=== PATIENT | female | born 1985 | race Caucasian/White ===

== ENCOUNTER 2017-02-06 18:48 | Emergency (ER) | payer OTHER ==
[2017-02-06] MEDS ORDERED: NS 0.9% 1000 ML* 2,000 ML IV ONE (22:19)
[2017-02-06] MEDS ORDERED: Ondansetron ODT TAB* 4 MG PO ONE (22:20)
[2017-02-06] MEDS ORDERED: Ketorolac INJ* 30 MG/ML 1 ML VIAL IV PUSH ONE (22:20)
[2017-02-06] MEDS ORDERED: HYDROmorphone* 1 MG/ML 1 ML SYR IV SLOW PU ONE (22:20)
[2017-02-06] MEDS ORDERED: Ondansetron INJ* 2 MG/ML VIAL ONE (22:50)
[2017-02-06] MEDS ORDERED: Ondansetron INJ* 2 MG/ML VIAL IV ONE (23:04)
[2017-02-06 23:28] LABS: Hematocrit 37 % (35-47); Hemoglobin 12.2 g/dl (12.0-16.0); Mean Corpuscular HGB Conc 33 g/dl (31-36); Mean Corpuscular Hemoglobin 30 pg (27-31); Mean Corpuscular Volume 91 fL (80-97); Mean Platelet Volume 10 um3 (7.4-10.4); Red Blood Count 4.04 10^6/ul (4.0-5.4); Red Cell Distribution Width 13 % (10.5-15); White Blood Count 7.2 10^3/ul (3.5-10.8)
[2017-02-06 23:36] LABS: Urine Bacteria Absent (Absent); Urine Bilirubin Negative (Negative); Urine Glucose Negative (Negative); Urine Nitrite Negative (Negative)
[2017-02-06 23:38] LABS: ALT 8 U/L (7-52); AST 15 U/L (13-39); Albumin 4.2 g/dL (3.2-5.2); Alkaline Phosphatase 68 U/L (34-104); Anion Gap 6 mmol/L (2-11); BUN/Creatinine Ratio 14.5 (8-20); Blood Urea Nitrogen 10 mg/dL (6-24); CO2 Carbon Dioxide 26 mmol/L (22-32); Calcium 9.2 mg/dL (8.6-10.3); Chloride 107 mmol/L (101-111); EGFR African American 128.5 (>60); EGFR Non-African American 99.9 (>60); Globulin 2.3 g/dL (2-4); Glucose 81 mg/dL (70-100); Potassium 3.4 mmol/L (3.5-5.0); Sodium 139 mmol/L (133-145); Total Protein 6.5 g/dL (6.4-8.9)
--- NOTE | 2017-02-07 00:26 | ED ---
Abdominal Pain/Female - HPI Summary HPI Summary: 31F presents with left flank pain for a day. has history of kidney stones and this feels the same. She denies any n/v/d/c. she admits to dysuria but denies any hematuria, frequency, urgency. She denies any fever. She has not taken anything for pain. denies any injury. - History of Current Complaint Chief Complaint: EDFlankPain Stated Complaint: LT FLANK PAIN Time Seen by Provider: 02/06/17 21:58 Pain Intensity: 8 Allergies/Adverse Reactions: Allergies Allergy/AdvReac Type Severity Reaction Status Date / Time Iodinated Contrast Media Allergy Severe HIVES, Verified 12/18/13 14:11 [CONTRAST DYE] SWELLING Morphine AdvReac Intermediate NECK/BACK Verified 12/18/13 14:11 PAIN PMH/Surg Hx/FS Hx/Imm Hx Endocrine/Hematology History: Denies: Hx Anticoagulant Therapy Cardiovascular History: Denies: Hx Hypertension - Surgical History Surgery Procedure, Year, and Place: ALFRED- CSECTION X2- HERNIA- DENYS EN Y- - Immunization History Date of Tetanus Vaccine: Unk Date of Influenza Vaccine: None Infectious Disease History: No Infectious Disease History: Denies: Traveled Outside the [place] in Last 30 Days - Family History Known Family History: Positive: Cardiac Disease - Social History Alcohol Use: None Substance Use Type: Reports: None Smoking Status (MU): Former Smoker Review of Systems Negative: Fever Negative: Chest Pain Negative: Shortness Of Breath Negative: Abdominal Pain, Vomiting, Diarrhea, Nausea Positive: dysuria, flank pain All Other Systems Reviewed And Are Negative: Yes Physical Exam Triage Information Reviewed: Yes Vital Signs On Initial Exam: Initial Vitals Temp Pulse Resp BP Pulse Ox 98.4 F 76 20 115/65 100 02/06/17 18:54 02/06/17 18:54 02/06/17 18:54 02/06/17 18:54 02/06/17 18:54 Vital Signs Reviewed: Yes Appearance: Positive: Pain Distress Skin: Positive: Warm, Dry Head/Face: Positive: Normal Head/Face Inspection Eyes: Positive: Normal, EOMI, TORY, Conjunctiva Clear ENT: Positive: Normal ENT inspection, Pharynx normal, TMs normal Respiratory/Lung Sounds: Positive: Clear to Auscultation, Breath Sounds Present Cardiovascular: Positive: Normal, RRR Abdomen Description: Positive: Nontender, Soft, CVA Tenderness (L) Bowel Sounds: Positive: Present - José Coma Scale Coma Scale Total: 15 Diagnostics - Vital Signs Vital Signs Temp Pulse Resp BP Pulse Ox 02/06/17 23:02 18 02/06/17 22:17 97.1 F 68 16 99/56 100 02/06/17 21:00 98.6 F 71 14 96/62 100 02/06/17 18:54 98.4 F 76 20 115/65 100 - Laboratory Lab Results: Lab Results 02/06/17 02/06/17 02/06/17 Range/Units 23:05 23:05 23:05 WBC 7.2 (3.5-10.8) 10^3/ul RBC 4.04 (4.0-5.4) 10^6/ul Hgb 12.2 (12.0-16.0) g/dl Hct 37 (35-47) % MCV 91 (80-97) fL MCH 30 (27-31) pg MCHC 33 (31-36) g/dl RDW 13 (10.5-15) % Plt Count 198 (150-450) 10^3/ul MPV 10 (7.4-10.4) um3 Neut % (Auto) 58.1 (38-83) % Lymph % (Auto) 34.2 (25-47) % Henry % (Auto) 4.6 (1-9) % Eos % (Auto) 2.6 (0-6) % Baso % (Auto) 0.5 (0-2) % Absolute Neuts (auto) 4.2 (1.5-7.7) 10^3/ul Absolute Lymphs (auto) 2.5 (1.0-4.8) 10^3/ul Absolute Monos (auto) 0.3 (0-0.8) 10^3/ul Absolute Eos (auto) 0.2 (0-0.6) 10^3/ul Absolute Basos (auto) 0 (0-0.2) 10^3/ul Absolute Nucleated RBC 0.01 10^3/ul Nucleated RBC % 0.1 Sodium 139 (133-145) mmol/L Potassium 3.4 L (3.5-5.0) mmol/L Chloride 107 (101-111) mmol/L Carbon Dioxide 26 (22-32) mmol/L Anion Gap 6 (2-11) mmol/L BUN 10 (6-24) mg/dL Creatinine 0.69 (0.51-0.95) mg/dL Est GFR ( Amer) 128.5 (>60) Est GFR (Non-Af Amer) 99.9 (>60) BUN/Creatinine Ratio 14.5 (8-20) Glucose 81 (70-100) mg/dL Calcium 9.2 (8.6-10.3) mg/dL Total Bilirubin 0.30 (0.2-1.0) mg/dL AST 15 (13-39) U/L ALT 8 (7-52) U/L Alkaline Phosphatase 68 (34-104) U/L C-React Prot High Sens 0.39 mg/L Total Protein 6.5 (6.4-8.9) g/dL Albumin 4.2 (3.2-5.2) g/dL Globulin 2.3 (2-4) g/dL Albumin/Globulin Ratio 1.8 (1-3) Beta HCG, Quant < 0.60 mIU/mL Urine Color Yellow Urine Appearance Clear Urine pH 5.0 (5-9) Ur Specific [place] 1.023 (1.010-1.030) Urine Protein Negative (Negative) Urine Ketones Negative (Negative) Urine Blood 3+ H (Negative) Urine Nitrate Negative (Negative) Urine Bilirubin Negative (Negative) Urine Urobilinogen Negative (Negative) Ur Leukocyte Esterase Negative (Negative) Urine WBC (Auto) 1+(6-10/hpf) H (Absent) Urine RBC (Auto) 3+(>10/hpf) H (Absent) Ur Squamous Epith Cells Present H (Absent) Calcium Oxalate Crystal Present H (Absent) Urine Bacteria Absent (Absent) Urine Glucose Negative (Negative) Result Diagrams: 02/06/17 23:05 02/06/17 23:05 Lab Statement: Any lab studies that have been ordered have been reviewed, and results considered in the medical decision making process. - CT abd CT Interpretation: Positive (See Comments) - 5mm stone mid left kidney has slightly enlarge. no uteroterlithasis. CT Interpretation Completed By: Radiologist Abdominal Pain Fem Course/Dx - Course Course Of Treatment: 31F presents with left flank pain for a day. has history of kidney stones and this feels the same. She denies any n/v/d/c. she admits to dysuria but denies any hematuria, frequency, urgency. She denies any fever. She has not taken anything for pain. denies any injury. on exam has tenderness left flank. CT abd shows stone in kidney. labs normal. no uti. patient understands and agrees with plan. - Diagnoses Differential Diagnosis: Positive: Renal Colic, Urinary Tract Infection, Other - pyelo Provider Diagnoses: Flank pain, Injury of left hand Discharge - Discharge Plan Condition: Good Disposition: HOME Patient Education Materials: Flank Pain (ED) Forms: *Work Release Referrals: Kya Us MD [Primary Care Provider] - Additional Instructions: Take Tylenol or ibuprofen every 6 hours as needed for pain Apply ice, rest, elevate Follow up with primary care physician within 5 days Return to ED if develop any new or worsening symptoms
[2017-02-07 01:00] VITALS: BP 104/52
--- NOTE | 2017-02-07 07:24 | RAD ---
INDICATION: Left hand injury. TECHNIQUE: 4 views of the left hand were obtained. FINDINGS: There is soft tissue swelling noted dorsal to the metacarpal bones. The bones are normal alignment. No fracture is seen. Joint spaces appear maintained. IMPRESSION: SOFT TISSUE SWELLING, NO FRACTURE IS SEEN, IF THE PATIENT'S SYMPTOMS PERSIST RECOMMEND FOLLOW-UP IMAGING.
--- NOTE | 2017-02-07 08:05 | RAD ---
INDICATION: Left flank abdominal pain. COMPARISON: Comparison is made with a prior CT of the abdomen and pelvis from November 24, 2014. TECHNIQUE: A CT scan of the abdomen and pelvis was performed without intravenous or oral contrast. Contiguous axial sections were obtained from the lung bases through the symphysis pubis. Images were reconstructed in the coronal and sagittal planes. FINDINGS: The lung bases are clear. No pleural effusion is present. The liver and spleen are normal in size without significant focal abnormality on this noncontrast study. The patient is status post cholecystectomy. No pancreatic ductal distention or calcifications are appreciated. The adrenal glands appear to be within normal limits. There is a 5 mm calculus in the mid to upper portion of the left kidney which has increased slightly in size from the prior study. On the prior exam there was an additional small punctate left renal calculus which is no longer visualized. No hydronephrosis is seen. There are several calcifications present within the pelvis limiting the study although no definite ureteral or bladder calculi are seen. The abdominal aorta is normal in caliber. No significant enlarged retroperitoneal lymph nodes are seen. The patient appears to be status post Leian-en-Y gastric bypass surgery. The stomach, small and large bowel appear nondistended. The appendix is not well visualized. There is no evidence for diverticulitis or colitis. The uterus is retroverted and normal in size. There is a relatively prominent amount of air within the vagina. Recommend clinical correlation. No free intraperitoneal air or fluid is seen. No significant focal osseous abnormality is seen. IMPRESSION: 1. NONOBSTRUCTING LEFT RENAL CALCULUS. 2. AIR WITHIN THE VAGINA. RECOMMEND CLINICAL CORRELATION. 3. STATUS POST CHOLECYSTECTOMY AND GASTRIC BYPASS SURGERY.
== END 2017-02-07 00:57 | disposition home or self-care (01) ==
LOC: ED 18:48
DX: R10.84 Generalized abdominal pain (principal); S69.92XA Unspecified injury of left wrist, hand and finger(s), initial encounter; X58.XXXA Exposure to other specified factors, initial encounter; Y93.9 Activity, unspecified; Y92.89 Other specified places as the place of occurrence of the external cause
CPT/HCPCS: 36415; 74176; 80053; 81003; 81015; 84702; 85025; 86141; 96374; 96375; 99283; J1170; J1885; J2405

== ENCOUNTER 2018-03-31 09:18 | Emergency (ER) | payer BC ==
[2018-03-31] MEDS ORDERED: NS 0.9% 1000 ML* 1,000 ML IV ONE (09:38)
[2018-03-31] MEDS ORDERED: Ketorolac INJ* 30 MG/ML 1 ML VIAL IV PUSH ONE (09:38)
[2018-03-31 09:55] LABS: Hematocrit 39 % (35-47); Mean Corpuscular HGB Conc 33 g/dl (31-36); Mean Corpuscular Hemoglobin 29 pg (27-31); Mean Corpuscular Volume 88 fL (80-97); Mean Platelet Volume 8.4 um3 (7.4-10.4); Platelet Count 261 10^3/ul (150-450); Red Blood Count 4.41 10^6/ul (4.00-5.40); Red Cell Distribution Width 14 % (10.5-15); White Blood Count 9.4 10^3/ul (3.5-10.8)
[2018-03-31] MEDS ORDERED: cefTRIAXone(*) 1 GM in NS 0.9% 50 ML* 50 ML IVPB ONE (10:06)
[2018-03-31] MEDS ORDERED: Ondansetron INJ* 2 MG/ML VIAL IV ONE (10:06)
--- NOTE | 2018-03-31 11:32 | RAD ---
Indication: Flank pain. CT of the abdomen and pelvis was performed without oral or IV contrast administration. Coronal and sagittal reconstructed images were obtained. Comparison is made with previous exam dated February 06, 2017. The lung bases demonstrate tiny pleural-based nodule measuring 3 mm in the right middle lobe area. No alveolar consolidation is noted. No parenchymal nodules are noted. Right breast implant is noted. Heart demonstrates no pericardial effusion. Liver is normal in size. No focal lesions or intrahepatic duct dilatation is noted. Pancreas demonstrates no mass or pancreatic duct dilatation. Spleen is normal in size. The patient status post gastric bypass surgery. No adrenal lesions are noted. The kidneys demonstrate no hydronephrosis. Calcifications are noted in the left kidney without evidence of obstruction. No evidence of obstructive uropathy is noted. No retroperitoneal lymphadenopathy. CT of the pelvis demonstrates urinary bladder place. A Ardon catheter. Patient is status post hysterectomy. No evidence of fluid is noted in the cul-de-sac. No hernias are noted. No abnormally dilated loops of bowel are noted. The visualized bony structures are grossly unremarkable. IMPRESSION: Postoperative changes in the rectovesical space presumably from recent hysterectomy. No definite obstructive uropathy is noted. Bony structures are grossly unremarkable. Ardon catheter is in place. Patient is status post gastric bypass surgery.
[2018-03-31 11:34] LABS: Urine Appearance Cloudy; Urine Blood 2+ (Negative); Urine Color Yellow; Urine Ketones Negative (Negative); Urine Protein Negative (Negative); Urine Red Blood Cell 2+(6-10/hpf) (Absent); Urine Specific Gravity 1.003 (1.010-1.030); Urine Urobilinogen Negative (Negative); Urine White Blood Cell 3+(>20/hpf) (Absent)
[2018-03-31 13:59] VITALS: BP 96/55
--- NOTE | 2018-03-31 15:52 | ED ---
Abdominal Pain/Female - HPI Summary HPI Summary: Patient is a 82-year-old female who presents emergency department for right flank pain status post hysterectomy with bladder laceration 10 days ago. Patient had hysterectomy secondary to menorrhagia by Dr. Sims at [facility]. Complications of bladder laceration and repair. Pt. currently has an indwelling Ardon. Patient states she has a history of recurrent UTIs and pyelonephritis. She was placed prophylactically on Macrobid after Ardon was placed. Patient states she started just fell ill last week with intermittent fevers and bladder pain. She was started on Keflex yesterday for potential UTI. She also notes intermittent nausea and vomiting for which she has Zofran at home. Symptoms are moderate in severity. No current modifying factors. - History of Current Complaint Chief Complaint: EDUrogenitalProblems Stated Complaint: CATHETER INFECTION Time Seen by Provider: 03/31/18 09:33 Hx Obtained From: Patient Pain Intensity: 4 Pain Scale Used: 0-10 Numeric Allergies/Adverse Reactions: Allergies Allergy/AdvReac Type Severity Reaction Status Date / Time hydromorphone [From Dilaudid] Allergy Hives Verified 03/31/18 09:23 Iodinated Contrast- Oral and Allergy Hives/Diff. Verified 03/31/18 09:23 IV Dye Breathing/I tching morphine Allergy Pain Verified 03/31/18 09:23 PMH/Surg Hx/FS Hx/Imm Hx Previously Healthy: Yes Endocrine/Hematology History: Denies: Hx Anticoagulant Therapy Cardiovascular History: Denies: Hx Hypertension - Surgical History Surgery Procedure, Year, and Place: ALFRED- CSECTION X2- HERNIA- DENYS EN Y- HYSTERECTOMY - Immunization History Date of Tetanus Vaccine: Unk Date of Influenza Vaccine: None Infectious Disease History: No Infectious Disease History: Reports: Traveled Outside the [place] in Last 30 Days - [place] - Family History Known Family History: Positive: Cardiac Disease - Social History Occupation: Unemployed Lives: With Family Alcohol Use: None Substance Use Type: Reports: None Smoking Status (MU): Former Smoker Review of Systems Positive: Fever, Chills Respiratory: Negative Positive: Abdominal Pain, Vomiting, Nausea Positive: dysuria, flank pain Neurological: Negative All Other Systems Reviewed And Are Negative: Yes Physical Exam Triage Information Reviewed: Yes Vital Signs On Initial Exam: Initial Vitals Temp Pulse Resp BP Pulse Ox 98.3 F 95 16 126/69 94 03/31/18 09:24 03/31/18 09:24 03/31/18 09:24 03/31/18 09:24 03/31/18 09:24 Vital Signs Reviewed: Yes Appearance: Positive: Well-Appearing - Patient sitting up in bed in no acute distress. Tearful. Skin: Positive: Warm, Dry Head/Face: Positive: Normal Head/Face Inspection Eyes: Positive: Normal, EOMI Neck: Positive: Supple Respiratory/Lung Sounds: Positive: Clear to Auscultation, Breath Sounds Present Cardiovascular: Positive: Normal, RRR Abdomen Description: Positive: Other: - No rebound tenderness or guarding. Significant right CVA tenderness. Diffuse abdominal tenderness. Neurological: Positive: Normal, CN Intact II-III Psychiatric: Positive: Affect/Mood Appropriate Diagnostics - Vital Signs Vital Signs Temp Pulse Resp BP Pulse Ox 03/31/18 14:08 98.1 F 77 14 96/55 98 03/31/18 13:28 69 96/55 98 03/31/18 13:00 66 97 03/31/18 12:58 67 103/62 99 03/31/18 12:28 68 101/61 95 03/31/18 12:00 67 97 03/31/18 11:58 66 104/58 98 03/31/18 11:28 66 102/67 96 03/31/18 11:00 73 95 03/31/18 10:59 76 89/66 95 03/31/18 10:58 71 95 03/31/18 09:24 98.3 F 95 16 126/69 94 - Laboratory Lab Results: Lab Results 03/31/18 03/31/18 03/31/18 Range/Units 09:49 09:49 11:00 WBC 9.4 (3.5-10.8) 10^3/ul RBC 4.41 (4.00-5.40) 10^6/ul Hgb 13.0 (12.0-16.0) g/dl Hct 39 (35-47) % MCV 88 (80-97) fL MCH 29 (27-31) pg MCHC 33 (31-36) g/dl RDW 14 (10.5-15) % Plt Count 261 (150-450) 10^3/ul MPV 8.4 (7.4-10.4) um3 Sodium 137 (135-145) mmol/L Potassium 4.0 (3.5-5.0) mmol/L Chloride 102 (101-111) mmol/L Carbon Dioxide 29 (22-32) mmol/L Anion Gap 6 (2-11) mmol/L BUN 10 (6-24) mg/dL Creatinine 0.71 (0.51-0.95) mg/dL Est GFR ( Amer) 116.2 (>60) Est GFR (Non-Af Amer) 96.0 (>60) BUN/Creatinine Ratio 14.1 (8-20) Glucose 107 H (70-100) mg/dL Calcium 9.7 (8.6-10.3) mg/dL Total Bilirubin 0.40 (0.2-1.0) mg/dL AST 57 H (13-39) U/L ALT 121 H (7-52) U/L Alkaline Phosphatase 267 H (34-104) U/L Total Protein 7.3 (6.4-8.9) g/dL Albumin 4.1 (3.2-5.2) g/dL Globulin 3.2 (2-4) g/dL Albumin/Globulin Ratio 1.3 (1-3) Urine Color Yellow Urine Appearance Cloudy Urine pH 7.0 (5-9) Ur Specific [place] 1.003 L (1.010-1.030) Urine Protein Negative (Negative) Urine Ketones Negative (Negative) Urine Blood 2+ A (Negative) Urine Nitrate Negative (Negative) Urine Bilirubin Negative (Negative) Urine Urobilinogen Negative (Negative) Ur Leukocyte Esterase 3+ A (Negative) Urine WBC (Auto) 3+(>20/hpf) A (Absent) Urine RBC (Auto) 2+(6-10/hpf) A (Absent) Ur Squamous Epith Cells Present A (Absent) Urine Bacteria 1+ A (Absent) Urine Glucose Negative (Negative) Result Diagrams: 03/31/18 09:49 03/31/18 09:49 Lab Statement: Any lab studies that have been ordered have been reviewed, and results considered in the medical decision making process. Abdominal Pain Fem Course/Dx - Course Course Of Treatment: Patient is roughly pain, subjective fevers, nausea and vomiting status post hysterectomy and bladder laceration. In the ER she is afebrile stable vital signs. Will proactively give patient a dose of Rocephin started IV fluids, Zofran and Toradol given. At work and urine ordered. They did consult our urologist, Dr. Simon, who recommends abdominal CT for evaluation of hydronephrosis, ureter injury. Patient states she did not see urology [place]. He did speak with on-call water resources project manager at [place], Dr. Norton, he was able to find more information on patient's course and treatment. Postoperative notes were obtained [place] as well. CT scan shows postoperative changes without acute findings, reading per radiology. Blood work is unremarkable. Urinalysis shows bacteria and leukocytes. Dr. Simon recommends switching patient's antibiotic to Cipro. He does not see a reason for patient to follow up with urology. Results discussed with patient. She has an appointment with gynecology for next week. Advised to return to the ER for increased pain, fever, vomiting or if concerned. She understands and agrees with plan. - Diagnoses Provider Diagnoses: UTI (urinary tract infection), Flank pain Discharge - Sign-Out/Discharge Documenting (check all that apply): Patient Departure - Discharge Plan Condition: Good Disposition: HOME Prescriptions: Ciprofloxacin TAB* [Cipro 500 MG TAB*] 500 mg PO BID #14 tab Patient Education Materials: Ardon Catheter Placement and Care (ED) Referrals: Richa Victor MD [Primary Care Provider] - Additional Instructions: Call your RIDE ASSEMBLY SUPERVISOR on Monday for a follow up appointment Take Cipro instead of keflex Motrin for pain as directed Return to ER if symptoms change or worsen - Billing Disposition and Condition Condition: GOOD Disposition: Home
--- NOTE | 2018-04-02 06:03 | PN ---
Progress Note - Progress Note Date of Service: 04/02/18 Note: The patient's urine culture pseudomonas greater than 100,000. Place place on Cipro. Will wait for final culture.
--- NOTE | 2018-04-03 05:34 | PN ---
Progress Note - Progress Note Date of Service: 04/03/18 Note: patient placed on cipro which final culture is sensitive to.
== END 2018-03-31 14:08 | disposition home or self-care (01) ==
LOC: ED 09:18
DX: N39.0 Urinary tract infection, site not specified (principal); B96.5 Pseudomonas (aeruginosa) (mallei) (pseudomallei) as the cause of diseases classified elsewhere; Z87.440 Personal history of urinary (tract) infections; R10.817 Generalized abdominal tenderness; S37.23XD Laceration of bladder, subsequent encounter; X58.XXXD Exposure to other specified factors, subsequent encounter; Z90.710 Acquired absence of both cervix and uterus; R11.2 Nausea with vomiting, unspecified; Z88.5 Allergy status to narcotic agent; Z91.041 Radiographic dye allergy status; Z87.891 Personal history of nicotine dependence
CPT/HCPCS: 36415; 74176; 80053; 81003; 81015; 85027; 87077; 87086; 87186; 96374; 96375; 99284; J0696; J1885; J2405

== ENCOUNTER 2019-05-02 20:20 | Emergency (ER) | payer BC ==
--- OUTSIDE RECORDS SUMMARY | 2019-05-02 20:42 | XMS REPORT | Continuity of Care Document ---
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 [phone] Problems Description No Information Available Social History Type Date Description Comments Sex Unknown ETOH Use Denies alcohol use Tobacco Use Start: Unknown End: Patient is a former smoker Unknown Recreational Drug Use Denies Drug Use Smoking Status Reviewed: 03/21/19 Patient is a former smoker Exercise Type/Frequency Exercises regularly Allergies, Adverse Reactions, Alerts Active Allergies Reaction Severity Comments Date Iodine 02/05/2015 Morphine 02/05/2015 Dilaudid 02/05/2015 Medications Active Medications SIG Qnty Indications Ordering Date Provider Midodrine HCL 1 by mouth twice 90tabs Chantal Levin, 03/21/2019 2.5mg daily ( 7 am and CENTRAL OFFICE SUPERVISOR Tablets 2 pm ) Ondansetron HCL take 1 by mouth Unknown 8mg q6h prn Tablets Multivitamins 1 by mouth twice Unknown Capsules every day Vitamin B12 injection 1once Unknown 1000mcg every 2 weeks. Ibuprofen 200 400-600mg every 6 Unknown 200mg hours as needed Tablets for pain. Calcium 1200 1 by mouth every Unknown day ( calcium is [id number] 1500 mg) Chewtabs Biotin/Collagen 1 po qd Unknown Zyrtec Allergy take one tablet Unknown 10mg by mouth in the Capsules evening Immunizations Description No Information Available Vital Signs Date Vital Result Comment 03/21/2019 2:02pm Height 60 inches 5'0" Weight 158.38 lb Heart Rate 72 /min BP Systolic Sitting 102 mmHg Ra< reg BP Diastolic Sitting 68 mmHg Ra< reg BP Systolic Standing 108 mmHg LA, reg BP Diastolic Standing 68 mmHg LA, reg BMI (Body Mass Index) 30.9 kg/m2 Ejection Fraction 50%-55% 05/03/18 12/06/2018 1:53pm Height 60 inches 5'0" Weight 161.50 lb Clothes/shoes Heart Rate 80 /min Radial BP Systolic Sitting 118 mmHg Rue reg cuff BP Diastolic Sitting 70 mmHg Rue reg cuff BP Systolic Standing 108 mmHg RUe reg cuff BP Diastolic Standing 70 mmHg RUe reg cuff BMI (Body Mass Index) 31.5 kg/m2 Ejection Fraction 50-55% Echo 05/03/2018 Results Description No Information Available Procedures Date Code Description Status 09/28/2018 06195 Holter Monitor Review (24 hr)dr al & interp only Completed 09/26/2018 01402 ECG Monitor/Recording W/Visual Superimposition Scanning Completed Medical Devices Description No Information Available Encounters Type Date Location Provider Dx Diagnosis Office Visit 12/06/2018 [facility] Chantal Levin, I95.1 Orthostatic 2:30p CENTRAL OFFICE SUPERVISOR hypotension D64.9 Anemia, unspecified I36.1 Nonrheumatic tricuspid (valve) insufficiency Office Visit 10/09/2018 3:00p [facility] Chantal Levin, I95.1 Orthostatic Of [employer] CENTRAL OFFICE SUPERVISOR hypotension I36.1 Nonrheumatic tricuspid (valve) insufficiency D64.9 Anemia, unspecified Assessments Date Code Description Provider 03/21/2019 I95.1 Orthostatic hypotension Chantal Thjonnie, CENTRAL OFFICE SUPERVISOR 03/21/2019 R00.2 Palpitations Chantal Thjonnie, CENTRAL OFFICE SUPERVISOR 03/21/2019 I36.1 Nonrheumatic tricuspid (valve) Chantal Thuman, CENTRAL OFFICE SUPERVISOR insufficiency 03/21/2019 R53.83 Other fatigue Chantal Thuman, CENTRAL OFFICE SUPERVISOR 12/06/2018 I95.1 Orthostatic hypotension Chantal Thuman, CENTRAL OFFICE SUPERVISOR 12/06/2018 D64.9 Anemia, unspecified Chantal Thuman, CENTRAL OFFICE SUPERVISOR 12/06/2018 I36.1 Nonrheumatic tricuspid (valve) Chantal Thuman, CENTRAL OFFICE SUPERVISOR insufficiency 10/09/2018 I95.1 Orthostatic hypotension Chantal Thuman, CENTRAL OFFICE SUPERVISOR 10/09/2018 I36.1 Nonrheumatic tricuspid (valve) Chantal Thuman, CENTRAL OFFICE SUPERVISOR insufficiency 10/09/2018 D64.9 Anemia, unspecified Chantal Levin NP 09/28/2018 R55 Syncope and collapse Judy Arguelles M.D. 09/26/2018 R55 Syncope and collapse Nurse Visit IC Plan of Treatment Future Appointment(s):04/11/2019 1:00 pm - Chantal Levin NP at [facility]03/21/2019 - Chantal Levin NPI95.1 Orthostatic hypotensionFollow up:f /u with me in 3-4 weeks.Recommendations:Increase Midodrine to 2.5mg by mouth three times a day. Make sure you allow 3-4 hours between doses and do not take last dose 4 hour prior to bed. get non fasting labs.R00.2 NvehryfotysqJ54.1 Nonrheumatic tricuspid (valve) aktgajjuaqhumV45.83 Other fatigueReferral:Brigette Ash MD, Family Medicine Functional Status Description No Information Available Mental Status Description No Information Available Referrals Refer to Dr Reason for Referral Status Appt Date Brigette Ash MD Created [address] [place] [address] [phone]
--- OUTSIDE RECORDS SUMMARY | 2019-05-02 20:42 | XMS REPORT | Continuity of Care Document ---
:1985 External Reference #:[id number] Author Name Susan Levi NP Address [address] [place] [address] Care Team Providers Name Role Phone Brigette Ash M.D. 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 Problems Description No Information Available Social History Type Date Description Comments Sex Unknown Tobacco Use Start: Unknown Nonsmoker Tobacco Use Start: Unknown End: Former Cigarette Smoker 5-6 years, 1/4 ppd Unknown ETOH Use Denies alcohol use Exercise Exercises regularly daily cardio and HIT Type/Frequency training Allergies, Adverse Reactions, Alerts Active Allergies Reaction Severity Comments Date Morphine 03/27/2019 Medications Active Medications SIG Qnty Indications Ordering Provider Date Physical Therapy please diagnose M25.552 Susan Langston 03/27/2019 and treat for STEPHANIE Levi left hip pain, I suspect it band pain Midodrine HCL tid Unknown 2.5mg Tablets Zofran prn Unknown 8mg Tablets Ciprofloxacin HCL as needed Unknown 250mg Tablets Multi Vitamin once daily otc Unknown Tablets Calcium Unknown 1500mg Tablets Biotin 1200 daily Unknown 1000mcg Tablets Zyrtec Allergy 1 by mouth every Unknown 10mg Tablets day, please fill with generic Cyanocobalamin Bi-weekly Unknown 1000mcg/ML Solution Immunizations Description No Information Available Vital Signs Date Vital Result Comment 03/27/2019 10:45am BP Systolic 112 mmHg BP Diastolic 60 mmHg Heart Rate 66 /min Body Temperature 98.1 F Respiratory Rate 16 /min Height 61 inches 5'1" Weight 155.00 lb BMI (Body Mass Index) 29.3 kg/m2 Results Description No Information Available Procedures Description No Information Available Medical Devices Description No Information Available Encounters Description No Information Available Assessments Date Code Description Provider 03/27/2019 I95.1 Orthostatic hypotension Susan Ivis Levi, STEPHANIE 03/27/2019 D50.8 Other iron deficiency anemias Susan Levi, STEPHANIE 03/27/2019 D51.9 Vitamin B12 deficiency anemia, unspecified Susan Levi, PRIME BROKER 03/27/2019 J30.2 Other seasonal allergic rhinitis Susan Levi, STEPHANIE 03/27/2019 M25.552 Pain in left hip Susan Levi NP Plan of Treatment 03/27/2019 - Susan Levi, NPI95.1 Orthostatic hypotensionComments: Continue to follow-up with cardiologyWe will get labs and determine next steps.D50.8 Other iron deficiency anemiasComments:Continue to follow-up with pczstoghdxS32.9 Vitamin B12 deficiency anemia, qhxdaxwigmdM88.2 Other seasonal allergic psqrwvwqT85.552 Pain in left hipNew Medication:Physical Therapy - please diagnose and treat for left hip pain, I suspect it band painComments: start physical therapy and come back in 3 months for a recheck. Come back sooner if symptoms are worsening or evolving.AllComments:1. Patient has been queried about patient's goals/preferences and functional/lifestyle goals at relevant visits. If relevant, describe: Has been discussed, noted above2. Treatment goals as explainedto the patient: see above3. Are there barriers to meeting treatment goals? Yes If Yes, please describe: Barriers include possible insurance limits, disease process, and difficulty with lifestyle changes4. Self-Management goals as described to the patient: Yes, see above As always, we strongly encourage a healthy diet and making physical activity a part of your every day life. If you have questions about how or where to start, please contact the office. Functional Status Description No Information Available Mental Status Description No Information Available Referrals Description No Information Available
--- OUTSIDE RECORDS SUMMARY | 2019-05-02 20:42 | XMS REPORT | Continuity of Care Document ---
:1985 External Reference #:[id number] Author Name Chantal Levin NP (transmitted by agent of provider Lyubov Castillo) Address [facility] [place] [address] Problems Description No Information Available Social History Type Date Description Comments Sex Unknown ETOH Use Denies alcohol use Tobacco Use Start: Unknown End: Patient is a former smoker Unknown Recreational Drug Use Denies Drug Use Smoking Status Reviewed: 04/11/19 Patient is a former smoker Exercise Type/Frequency Exercises regularly Allergies, Adverse Reactions, Alerts Active Allergies Reaction Severity Comments Date Iodine 02/05/2015 Morphine 02/05/2015 Dilaudid 02/05/2015 Medications Active Medications SIG Qnty Indications Ordering Date Provider Midodrine HCL 1 by mouth two 90tabs Chantal Levin, 03/21/2019 2.5mg times daily FAITH DOCTOR Tablets Ondansetron HCL take 1 by mouth Unknown 8mg q6h prn Tablets Multivitamins 1 by mouth once Unknown Capsules every day Vitamin B12 injection 1once Unknown 1000mcg every 2 weeks. Calcium 1200 1 by mouth every Unknown day ( calcium is [id number]-Llxs 1500 mg) Chewtabs Biotin/Collagen 1 po qd Unknown Zyrtec Allergy take one tablet Unknown 10mg by mouth in the Capsules evening Immunizations Description No Information Available Vital Signs Date Vital Result Comment 04/11/2019 12:54pm Height 60 inches 5'0" Weight 159.38 lb with shoes/jacket Heart Rate 72 /min radial,regular BP Systolic Sitting 108 mmHg LA, reg cuff BP Diastolic Sitting 70 mmHg LA, reg cuff BP Systolic Standing 108 mmHg LA, reg cuff BP Diastolic Standing 70 mmHg LA, reg cuff BMI (Body Mass Index) 31.1 kg/m2 Ejection Fraction 50%-55% echo 05/03/18 03/21/2019 2:02pm Height 60 inches 5'0" Weight 158.38 lb Heart Rate 72 /min BP Systolic Sitting 102 mmHg Ra< reg BP Diastolic Sitting 68 mmHg Ra< reg BP Systolic Standing 108 mmHg LA, reg BP Diastolic Standing 68 mmHg LA, reg BMI (Body Mass Index) 30.9 kg/m2 Ejection Fraction 50%-55% 05/03/18 Results Test Date Facility Test Result H/L Range Note Basic Metabolic 04/09/2019 [facility] Sodium 139 mmol/L Normal 135-[address] [place] [address] [phone] Potassium 4.4 mmol/L Normal 3.5-5.0 Chloride 107 mmol/L Normal 101-111 Co2 Carbon Dioxide 29 mmol/L Normal 22-32 Anion Gap 3 mmol/L Normal 2-11 Glucose 70 mg/dL Normal 70-100 Blood Urea Nitrogen 23 mg/dL Normal 6-24 Creatinine 0.71 mg/dL Normal 0.51-0.95 BUN/Creatinine Ratio 32.4 High 8-20 Calcium 9.3 mg/dL Normal 8.6-10.3 Egfr Non- 95.4 >60 Egfr 115.4 >60 1 Comp Metabolic 03/21/2019 [facility] Sodium 139 mmol/L Normal 135-[address] [place] [address] [phone] Potassium 4.4 mmol/L Normal 3.5-5.0 Chloride 104 mmol/L Normal 101-111 Co2 Carbon Dioxide 29 mmol/L Normal 22-32 Anion Gap 6 mmol/L Normal 2-11 Glucose 87 mg/dL Normal 70-100 Blood Urea Nitrogen 30 mg/dL High 6-24 Creatinine 0.99 mg/dL High 0.51-0.95 BUN/Creatinine Ratio 30.3 High 8-20 Calcium 9.4 mg/dL Normal 8.6-10.3 Total Protein 6.6 g/dL Normal 6.4-8.9 Albumin 4.3 g/dL Normal 3.2-5.2 Globulin 2.3 g/dL Normal 2-4 Albumin/Globulin Ratio 1.9 Normal 1-3 Total Bilirubin 0.30 mg/dL Normal 0.2-1.0 Alkaline Phosphatase 67 U/L Normal 34-104 Alt 24 U/L Normal 7-52 Ast 21 U/L Normal 13-39 Egfr Non- 65.0 >60 Egfr 78.7 >60 2 Laboratory test 03/21/2019 [facility] Nuclear AB <1:80 (Negative ) [address] ([place]) [place] [address] Igg [phone] 1 Because ethnic data is not always readily available, this report includes an eGFR for both -Americans and non- Americans. The National Kidney Disease Education Program (NKDEP) does not endorse the use of the MDRD equation for patients that are not between the ages of 18 and 70, are , have extremes of body size, muscle mass, or nutritional status, or are non- or non-. According to the National Kidney Foundation, irrespective of diagnosis, the stage of the disease is based on the level of kidney function: Stage Description GFR(mL/min/1.73 m(2)) 1 Kidney damage with normal or decreased GFR 90 2 Kidney damage with mild decrease in GFR 60-89 3 Moderate decrease in GFR 30-59 4 Severe decrease in GFR 15-29 5 Kidney failure <15 (or dialysis) 2 Because ethnic data is not always readily available, this report includes an eGFR for both -Americans and non- Americans. The National Kidney Disease Education Program (NKDEP) does not endorse the use of the MDRD equation for patients that are not between the ages of 18 and 70, are , have extremes of body size, muscle mass, or nutritional status, or are non- or non-. According to the National Kidney Foundation, irrespective of diagnosis, the stage of the disease is based on the level of kidney function: Stage Description GFR(mL/min/1.73 m(2)) 1 Kidney damage with normal or decreased GFR 90 2 Kidney damage with mild decrease in GFR 60-89 3 Moderate decrease in GFR 30-59 4 Severe decrease in GFR 15-29 5 Kidney failure <15 (or dialysis) 3 <1:80 (Negative) REFERENCE VALUE <1:80 (Negative) Test Performed by: [facility] [address] [place] [address] Pot[place] Flaker: Azeem Sanford M.D. Ph.D.; IA# [id number] Procedures Date Code Description Status 03/25/2019 42552 Holter Monitor Review (24 hr)dr review & interp only Completed 03/25/2019 70752 ECG Monitor/Recording W/Visual Superimposition Scanning Completed Medical Devices Description No Information Available Encounters Type Date Location Provider Dx Diagnosis Office Visit 03/21/2019 [facility] Chantal Thuman, I95.1 Orthostatic 2:00p FAITH DOCTOR hypotension R00.2 Palpitations I36.1 Nonrheumatic tricuspid (valve) insufficiency R53.83 Other fatigue Office Visit 12/06/2018 2:30p [facility] Chantal Thuman, I95.1 Orthostatic FAITH DOCTOR hypotension D64.9 Anemia, unspecified I36.1 Nonrheumatic tricuspid (valve) insufficiency Assessments Date Code Description Provider 03/25/2019 R00.2 Palpitations Nurse Visit cc 03/21/2019 I95.1 Orthostatic hypotension Chantal Thuman, FAITH DOCTOR 03/21/2019 R00.2 Palpitations Chantal Thuman, FAITH DOCTOR 03/21/2019 I36.1 Nonrheumatic tricuspid (valve) insufficiency Chantal Thuman , FAITH DOCTOR 03/21/2019 R53.83 Other fatigue Chantal Thuman, FAITH DOCTOR 12/06/2018 I95.1 Orthostatic hypotension Chantal Thuman, FAITH DOCTOR 12/06/2018 D64.9 Anemia, unspecified Chantal Thuman, FAITH DOCTOR 12/06/2018 I36.1 Nonrheumatic tricuspid (valve) insufficiency Chantal Thuman , FAITH DOCTOR Plan of Treatment No Information Available Functional Status Description No Information Available Mental Status Description No Information Available Referrals Refer to Reason for Referral Status Appt Date Brigette Ash MD patient needs a new PMD Sent [address] [place] [address] [phone]
[2019-05-02 22:24] LABS: ABS Eosinophils 0.1 10^3/ul (0-0.6); ABS Lymphocytes 1.7 10^3/ul (1.0-4.8); ABS Monocytes 0.4 10^3/ul (0-0.8); ABS Neutrophils 4.9 10^3/ul (1.5-7.7); Eosinophil % 2.1 %; Hematocrit 39 % (35-47); Hemoglobin 12.9 g/dL (12.0-16.0); Lymphocyte % 23.8 %; Mean Corpuscular HGB Conc 33 g/dL (31-36); Mean Corpuscular Hemoglobin 31 pg (27-31); Mean Corpuscular Volume 94 fL (80-97); Mean Platelet Volume 9.5 fL (7.4-10.4); Platelet Count 205 10^3/uL (150-450); Red Blood Count 4.13 10^6 /uL (3.70-4.87); Red Cell Distribution Width 14 % (10-15); White Blood Count 7.2 10^3/uL (3.5-10.8)
--- NOTE | 2019-05-02 22:38 | ED ---
HPI Chest Pain - HPI Summary HPI Summary: Patient is a 33 y/o F presenting to [facility] with complaints of focal-point pressure at her left anterior chest. She reports Sx initially onset at around 1330 05/02/19 while she was grocery shopping. Initial pain was mild. Pain progressively worsened while she was at her son's soccer practice and during the car ride home. Currently, her pain is still present but not as severe as it was previously. On triage, pain is rated 7/10. Intermittent radiation of pain to her left shoulder is noted. N/V, diaphoresis and SOB are denied. Sitting is noted to aggravate Sx. No pain with breathing is noted. 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 She is currently wearing an event monitor. Patient is followed by Dr. Arguelles, cardiology. She states that she was told by him that she has a "lazy heart". Patient reports that she experiences somnolence with exertion, noting that, sometimes, if she were to go on a run, she would be able to fall asleep immediately afterwards. Home medications and allergies are reviewed. - History of Current Complaint Chief Complaint: EDChestWallPain Time Seen by Provider: 05/02/19 22:26 Hx Obtained From: Patient Onset/Duration: Started Hours Ago, Still Present Timing: Constant, Lasting Hours Initial Severity: Mild Current Severity: Severe Pain Intensity: 7 Pain Scale Used: 0-10 Numeric Chest Pain Location: Left Anterior Chest Pain Radiates: Yes Chest Pain Radiates To:: Shoulder - left Character: Pressure/Squeezing Aggravating Factor(s): Other: - sitting Associated Signs and Symptoms: Positive: Chest Pain, Other: - No pain with breathing is noted.. Negative: Shortness of Breath, Diaphoresis, Nausea, Vomiting - Allergy/Home Medications Allergies/Adverse Reactions: Allergies Allergy/AdvReac Type Severity Reaction Status Date / Time hydromorphone [From Dilaudid] Allergy Hives Verified 03/31/18 09:23 Iodinated Contrast Media Allergy Hives/Diff. Verified 03/31/18 09:23 [Iodinated Contrast- Oral Breathing/I and IV Dye] tching morphine Allergy Pain Verified 03/31/18 09:23 PMH/Surg Hx/FS Hx/Imm Hx Endocrine/Hematology History: Reports: Hx Anemia Denies: Hx Anticoagulant Therapy Cardiovascular History: Reports: Hx Hypertension - orthopedic - Surgical History Surgery Procedure, Year, and Place: ALFRDE- CSECTION X2- HERNIA- DENYS EN Y- HYSTERECTOMY - Immunization History Date of Tetanus Vaccine: Unk Date of Influenza Vaccine: None Infectious Disease History: No Infectious Disease History: Denies: Traveled Outside the [place] in Last 30 Days - Family History Known Family History: Positive: Cardiac Disease - Social History Alcohol Use: None Substance Use Type: Reports: None Smoking Status (MU): Former Smoker Review of Systems Negative: Skin Diaphoresis Positive: Chest Pain Respiratory: Other - No pain with breathing Negative: Shortness Of Breath Negative: Vomiting, Nausea All Other Systems Reviewed And Are Negative: Yes Physical Exam - Summary Physical Exam Summary: Appearance: Well-appearing, Well-nourished, lying in bed comfortably Skin: Warm, dry, no obvious rash Eyes: sclera anicteric, no conjunctival pallor ENT: mucous membranes moist, pharynx appears normal Neck: Supple, nontender Respiratory: Clear to auscultation, no signs of respiratory distress Cardiovascular: Normal S1, S2. No murmurs. Normal distal pulses in tibial and radial bilaterally. Abdomen: Soft, nontender, normal active bowel sounds present Musculoskeletal: Normal, Strength/ROM Intact Neurological: A&Ox3, awake and alert, mentation is normal, speech is fluent and appropriate Psychiatric: affect is normal, does not appear anxious or depressed Triage Information Reviewed: Yes Vital Signs On Initial Exam: Initial Vitals Temp Pulse Resp BP Pulse Ox 98.8 F 69 16 101/61 98 05/02/19 20:28 05/02/19 20:28 05/02/19 20:28 05/02/19 20:28 05/02/19 20:28 Vital Signs Reviewed: Yes Procedures - Sedation Patient Received Moderate/Deep Sedation with Procedure: No Diagnostics - Vital Signs Vital Signs Temp Pulse Resp BP Pulse Ox 05/02/19 20:28 98.8 F 69 16 101/61 98 - Laboratory Lab Results: Lab Results 05/02/19 Range/Units 22:17 WBC 7.2 (3.5-10.8) 10^3/uL RBC 4.13 (3.70-4.87) 10^6 /uL Hgb 12.9 (12.0-16.0) g/dL Hct 39 (35-47) % MCV 94 (80-97) fL MCH 31 (27-31) pg MCHC 33 (31-36) g/dL RDW 14 (10-15) % Plt Count 205 (150-450) 10^3/uL MPV 9.5 (7.4-10.4) fL Neut % (Auto) 68.2 % Lymph % (Auto) 23.8 % Dickinson % (Auto) 5.5 % Eos % (Auto) 2.1 % Baso % (Auto) 0.4 % Absolute Neuts (auto) 4.9 (1.5-7.7) 10^3/ul Absolute Lymphs (auto) 1.7 (1.0-4.8) 10^3/ul Absolute Monos (auto) 0.4 (0-0.8) 10^3/ul Absolute Eos (auto) 0.1 (0-0.6) 10^3/ul Absolute Basos (auto) 0.0 (0-0.2) 10^3/ul Absolute Nucleated RBC 0.0 10^3/ul Nucleated RBC % 0.0 Result Diagrams: 05/02/19 22:17 05/02/19 22:17 Lab Statement: Any lab studies that have been ordered have been reviewed, and results considered in the medical decision making process. - EKG 2023 Cardiac Rate: NL - rate of 69 BPM EKG Rhythm: Sinus Rhythm Summary of EKG Findings: NSR at 69 BPM, P waves, QRS complex, and T waves are within normal limits, T waves and intervals are normal, no ischemic changes. This is a normal EKG. No STEMI. This EKG was reviewed and interpreted by Dr. Beasley. 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 Chest Pain Course/Dx - Course Course Of Treatment: Patient is a 33 y/o F presenting to [facility] with complaints of focal-point pressure at her left anterior chest. She reports Sx initially onset at around 1330 05/02/19 while she was grocery shopping. Initial pain was mild. Pain progressively worsened while she was at her son's soccer practice and during the car ride home. Currently, her pain is still present but not as severe as it was previously. On triage, pain is rated 7/10. Intermittent radiation of pain to her left shoulder is noted. N/V, diaphoresis and SOB are denied. 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 Physical exam is unremarkable. EKG showed NSR at 69 BPM, P waves, QRS complex, and T waves are within normal limits, T waves and intervals are normal, no ischemic changes. This is a normal EKG. No STEMI. Bloodwork was obtained and within normal limits with exception of Lactic acid 0.4. Trop was negative. Results of workup was discussed, patient was discharged to home and will follow up with her cold saw operator as needed. - Diagnoses Provider Diagnoses: Chest wall pain Discharge ED - Sign-Out/Discharge Documenting (check all that apply): Patient Departure - discharge - Discharge Plan Condition: Stable Disposition: HOME Patient Education Materials: Chest Wall Pain (ED) Referrals: Judy Arguelles MD [Medical Doctor] - If Needed - Billing Disposition and Condition Condition: STABLE Disposition: Home - Attestation Statements Document Initiated by Leonides: Yes Documenting Scribe: MECCA DONG Provider For Whom Leonides is Documenting (Include Credential): GURINDER BEASLEY MD Scribe Attestation: MECCA Mcmahon, scribed for GURINDER BEASLEY MD on 05/03/19 at 1843. Scribe Documentation Reviewed: Yes Provider Attestation: The documentation as recorded by the MECCA ellis accurately reflects the service I personally performed and the decisions made by me, GURINDER BEASLEY MD Status of Scribe Document: Viewed
[2019-05-02 22:41] LABS: ALT 18 U/L (7-52); AST 18 U/L (13-39); Albumin 4.2 g/dL (3.2-5.2); Albumin/Globulin Ratio 1.6 (1-3); Alkaline Phosphatase 66 U/L (34-104); Anion Gap 5 mmol/L (2-11); BUN/Creatinine Ratio 15.7 (8-20); Blood Urea Nitrogen 11 mg/dL (6-24); C Reactive Protein 1.83 mg/L (<8.01); CO2 Carbon Dioxide 28 mmol/L (22-32); Calcium 9.7 mg/dL (8.6-10.3); Chloride 106 mmol/L (101-111); EGFR African American 117.3 (>60); Globulin 2.6 g/dL (2-4); Glucose 86 mg/dL (70-100); Potassium 3.9 mmol/L (3.5-5.0); Sodium 139 mmol/L (135-145); Total Protein 6.8 g/dL (6.4-8.9)
[2019-05-02 22:48] LABS: HCG Pregnancy < 0.60 mIU/mL
[2019-05-02 23:24] VITALS: BP 102/64
== END 2019-05-02 23:24 | disposition home or self-care (01) ==
LOC: ED 20:20
DX: R07.89 Other chest pain (principal); M25.512 Pain in left shoulder; I10 Essential (primary) hypertension; Z88.5 Allergy status to narcotic agent; Z91.041 Radiographic dye allergy status; Z87.891 Personal history of nicotine dependence
CPT/HCPCS: 36415; 80053; 83605; 84484; 84702; 85025; 86140; 93005; 99283